=== PATIENT | male | born 1970 | race Asian ===

== ENCOUNTER 2019-03-05 12:00 | Outpatient (CLI) | payer BC ==
--- NOTE | 2019-03-05 13:46 | MRI ---
EXAM: MRI of the abdomen without and with contrast COMPARISON: None HISTORY: Right-sided abdominal pain. History of bowel polyps TECHNIQUE: Multiplanar multi sequence MR images were taken of the abdomen without and with IV contras t. VoLumen was given for enteric contrast. FINDINGS: Bowel: The enteric contrast is seen throughout the small bowel to the level of the colon. The small b owel is normal in caliber without significant dilation. No significant thickening of the large or small bowel wall is seen. No significant asymmetric enhancement is seen in the bowel wall. Liver: No focal liver lesions or intrahepatic ductal dilatation. Gallbladder: No filling defects or gallbladder wall thickening. Common bile duct: Normal caliber without filling defects Adrenal glands: Unremarkable. Kidneys: No hydronephrosis or focal renal lesions. Spleen: Unremarkable. Pancreas: Unremarkable. Retroperitoneum: No enlarged lymph nodes Bones: No marrow signal abnormality. IMPRESSION: No significant large or small bowel abnormality
[2019-03-05] MEDS ORDERED: Gadobenate Dimeglumine 529 MG/1 ML (20ML VIAL) ONE (17:19)
== END 2019-03-05 12:01 | disposition home or self-care (01) ==
LOC: MRI 12:00
PROVIDERS: ATTEND Internal Medicine Gastroenterology
DX: R07.81 Pleurodynia (principal); R10.9 Unspecified abdominal pain; Z86.010 Personal history of colon polyps
CPT/HCPCS: 74183; A9577; J1610